=== PATIENT | female | born 1995 | race Caucasian/White ===

== ENCOUNTER → 2019-03-25 15:44 | Outpatient (BNVA) | payer BC, SELFPAY | PROVIDERS: Family Provider Nurse Practitioner; PCP Nurse Practitioner; Visit Provider Nurse Practitioner | DX: N39.0 Urinary tract infection, site not specified (principal); R39.9 Unspecified symptoms and signs involving the genitourinary system | CPT/HCPCS: 81003 ==

== ENCOUNTER → 2019-09-11 14:33 | Outpatient (BNVA) | payer BC, SELFPAY | PROVIDERS: Family Provider Nurse Practitioner; PCP Family Medicine; Visit Provider Specialist | DX: G43.711 Chronic migraine without aura, intractable, with status migrainosus (principal); Z71.89 Other specified counseling | CPT/HCPCS: 96372; 99213 ==

== ENCOUNTER → 2020-01-28 08:09 | Outpatient (BNVA) | payer BC, SELFPAY | PROVIDERS: Family Provider Nurse Practitioner; PCP Family Medicine; Visit Provider Specialist | DX: G43.711 Chronic migraine without aura, intractable, with status migrainosus (principal); G24.3 Spasmodic torticollis; R23.2 Flushing | CPT/HCPCS: 99203 ==

== ENCOUNTER → 2021-01-06 12:17 | Outpatient (BNVA) | payer OTHER, SELFPAY | PROVIDERS: Family Provider Nurse Practitioner; PCP Family Medicine; Visit Provider Specialist | DX: M79.10 Myalgia, unspecified site (principal); R20.0 Anesthesia of skin; R20.2 Paresthesia of skin; R51.9 Headache, unspecified; Z79.899 Other long term (current) drug therapy | CPT/HCPCS: 36415; 80053; 84439; 84443; 85025; 85651; 86140; 86160; 86162; 86200; 86235; 86255; 86376 ==

== ENCOUNTER 2021-09-19 09:55 | Day surgery (SDC) | payer OTHER, SELFPAY ==
--- NOTE | 2021-09-19 09:48 | W.PM.OPSFHP ---
Same Day Surgery H&P Indication for Procedure/HPI DATE OF PROCEDURE: September 19, 2021 CHIEF COMPLAINT/INDICATIONFOR SURGICAL PROCEDURE: Odynophagia PREOP DIAGNOSIS: Dysphagia and odynophagia PLANNED PROCEDURE: Operation Date: 09/19/21 11:15 Proposed Procedures p EGD 48320,R13.10(Not Applicable) - Cody Betancourt MD Medications/Allergies* Home Medications Medication Instructions Recorded Confirmed Type ibuprofen 200 mg tablet 200 mg PO Q6H PRN 09/16/21 09/16/21 History Allergies/Adverse Reactions Allergy/AdvReac Type Severity Reaction Status Date / Time Penicillins Allergy hives Verified 09/16/21 07:17 Pertinent History/Comorbid Conditions* Social History Smoking and tobacco status: never smoked Alcohol intake: never History of recent travel: No Pertinent Exam Findings alert, oriented x 3, clear to auscultation bilaterally, regular rate & rhythm, operative site marked and procedure specific exam findings Recommendations Surgery/Procedure today Coding Level of Care Code Acute Speech And Language Assistant for Brandon Gates
[2021-09-19 10:09] VITALS: BP 127/65; PULSE 81; RESP 18; TEMP 36.4; O2SAT 100
[2021-09-19] MEDS: sodium chloride 0.9% 1,000 ML 30 ML IV (10:13)
[2021-09-19 10:21] LABS: OR HCG Qualitative Urine Negative (Negative)
[2021-09-19 12:05] VITALS: BP 115/86; PULSE 113; RESP 16; TEMP 36.2; O2SAT 95
--- NOTE | 2021-09-19 12:07 | ANES.PREANE2 ---
Pre-Anesthetic Assessment Height/Weight: Height 1.75 m Weight 81.647 kg Temp Pulse Resp BP Pulse Ox 97.6 F 81 18 127/65 100 09/19/21 10:09 09/19/21 10:09 09/19/21 10:09 09/19/21 10:09 09/19/21 10:09 Preop Diagnosis: odynophagia Operation Date: 09/19/21 11:15 Proposed Procedures p EGD 20007,R13.10(Not Applicable) - Cody Betancourt MD Familial anesthetic complications: none Was Beta Madie taken within 24 hours: N/A Was Clonidine taken within 24 hours: N/A Last intake: Intake Last Liquid Date 09/18/21 Last Liquid Time 22:30 Last Solid Date 09/18/21 Last Solid Time 23:00 Last Intake: 22:30 Social No alcohol and No tobacco Exam oriented x 3 Airway Submandibular: within normal limits Cervical ROM: within normal limits Mallampati: Class II Dentition: full History/ROS No significant complaints GI Gastroesophageal Reflux Disease Anesthetic Plan ASA status: 1 Anesthesia: Anesthesia Evaluation and MAC Risk of > 500 ml blood loss (7ml/kg in children): No Medications/Allergies Home Medications Medication Instructions Recorded Confirmed Last Taken Type pantoprazole 40 mg tablet,delayed 40 mg PO QAM #90 tab 09/15/21 09/16/21 09/18/21 08:00 Rx release ibuprofen 200 mg tablet 200 mg PO Q6H PRN 09/16/21 09/16/21 Unknown History Allergies Allergy/AdvReac Type Severity Reaction Status Date / Time Penicillins Allergy hives Verified 09/19/21 10:17 Current Medications Generic Name Dose Route Start Last Admin Trade Name Freq PRN Reason Stop Dose Admin Sodium Chloride 1,000 mls @ 30 mls/hr 09/19/21 10:00 09/19/21 10:13 Sodium Chloride 0.9% IV 30 mls/hr .Q24H EDWARD Administration PFSH Anesthesia Social History Smoking and tobacco status: never smoked Alcohol intake: never History of recent travel: No Data Anesthesia Cardiac Studies: No Data to Display
--- NOTE | 2021-09-19 12:08 | ANE.PACU2 ---
Inpatient post-anesthesia follow up: Airway intact: Yes Vital signs: Temperature 97.2 F Pulse Rate 113 Respiratory Rate 16 Blood Pressure 115/86 Pulse Oximetry 95 Oxygen Delivery Me thod Room Air Oxygen Flow Rate Fraction of Inspir ed Oxygen Hydration adequate: Yes Nausea and vomiting: No Pain level: 1 Mental status: Baseline
[2021-09-19 12:15] VITALS: BP 114/82; PULSE 115; RESP 18; O2SAT 96
== END 2021-09-19 12:35 | disposition home or self-care (01) ==
PROVIDERS: Anesthesiology; PCP Internal Medicine; Visit Provider Internal Medicine
PROC: 0DJ08ZZ Inspection of Upper Intestinal Tract, Via Natural or Artificial Opening Endoscopic (ICD-10-PCS; CPT 43235; principal; 2021-09-19 11:15)
DX: R13.10 Dysphagia, unspecified (principal); K21.9 Gastro-esophageal reflux disease without esophagitis
CPT/HCPCS: 43235; 81025; 84703; J2704; J7030

== ENCOUNTER → 2023-04-20 12:15 | Outpatient (BNVA) | payer OTHER, SELFPAY | PROVIDERS: Visit Provider Nurse Practitioner Family | DX: R39.9 Unspecified symptoms and signs involving the genitourinary system (principal) | CPT/HCPCS: 81000; 87077; 87086; 87184 ==

== ENCOUNTER → 2023-05-28 11:35 | Outpatient (BNVA) | payer OTHER, SELFPAY | PROVIDERS: PCP Family Medicine; Visit Provider Family Medicine | DX: L50.9 Urticaria, unspecified (principal); Z51.81 Encounter for therapeutic drug level monitoring; R19.7 Diarrhea, unspecified | CPT/HCPCS: 80053; 82542; 85025; 85651; 86003; 86008; 86141 ==